=== PATIENT | female | born 1960 | race Caucasian/White ===

== ENCOUNTER 2017-01-30 19:30 | Inpatient (IN) ==
--- NOTE | 2017-01-30 20:47 | PROVIDER DOCUMENTATION ---
This chart was entered by Eliza Tena Scribe, acting as scribe for Himanshu Mchugh MD. HPI-Rash/Wound/ReCheck - General Chief Complaint: Wound Recheck Stated Complaint: WOUND RECHECK Time Seen by Provider: 01/30/17 20:27 Source: patient Allergies/Adverse Reactions: Allergies Allergy/AdvReac Type Severity Reaction Status Date / Time No Known Allergies Allergy Verified 01/29/17 07:06 Home Medications: Home Medication List Medication Instructions Recorded Confirmed Last Taken Type Amoxicillin/Potassium Clav 1 each PO TID #30 tablet 01/29/17 01/30/17 01/30/17 07:30 Rx [Augmentin 500-125 Tablet] Alprazolam [Alprazolam] 1 tab PO 01/30/17 Unknown History Brinzolamide/Brimonidine Tart 1 drop OPH BID 01/30/17 01/30/17 Unknown History [Simbrinza 1%-0.2% Eye Drops] Cholecalciferol (Vitamin D3) 1 tab PO DAILY 01/30/17 01/30/17 Unknown History [Vitamin D3] Cyanocobalamin/Folic Acid [B-12 1 tab PO DAILY 01/30/17 01/30/17 Unknown History 1,000 Mcg Sub Tablet] Levothyroxine [Synthroid] 75 microgm PO DAILY 01/30/17 01/30/17 01/29/17 History Losartan/Hydrochlorothiazide 1 tab PO DAILY 01/30/17 01/30/17 01/29/17 History [Hyzaar 50-12.5 Tablet] Mirtazapine [Remeron] 30 mg PO HS 01/30/17 01/30/17 01/29/17 History Mometasone/Formoterol [Dulera 100 2 inhaler PO PRN PRN 01/30/17 01/30/17 Unknown History Mcg/5 Mcg Inhaler] Pantoprazole [Protonix] 40 mg PO DAILY 01/30/17 01/30/17 Unknown History Pravastatin Sodium [Pravastatin 20 mg PO DAILY 01/30/17 01/30/17 01/29/17 History Sodium] Promethazine [Phenergan] 25 mg PO PRN PRN 01/30/17 01/30/17 Unknown History Sulfamethoxazole/Trimethoprim 1 each PO BID #20 tablet 01/30/17 Unknown Rx [Bactrim Ds Tablet] - History of Present Illness-Dermatology Nature of Presenting Problem: 56 Y/O F presents to ED with Animal Bite. Pt was seen twice and given Antibiotics. Pt was seen today and given IV antibiotics. Animal bite on left hand, Pt had area marked off where inflammation was and inflammation has grown past that area. Pt complains of burning and pain in arm. Pt was bitten on Friday 3 days ago. Location: reports: hands (left) Quality: reports: burning, painful Severity: reports: severe Onset/Duration: reports: 3 days ago Timing: reports: still present, changing over time, getting worse Context/Associated Symptoms: reports: tender area, other (dog bite) Identifiable cause?: Yes Locality of Occurance: Home Similar Symptoms Previously?: Yes Recently seen or treated by another doctor?: Yes - Recheck Treated days ago.: 2 (and today also 01/30/2017 ) Previous Treatment: other (dog bite wound care) Antibiotics given: prescription (and IV) Symptoms since procedure:: reports: pain, redness Review of Systems - Adult - REVIEW OF SYSTEMS - ADULT Constitutional: denies: chills, fever Eyes: reports: no symptoms reported Ears, Nose, Mouth & Throat: reports: no symptoms reported Cardiovascular: reports: no symptoms reported Respiratory: reports: no symptoms reported Gastrointestinal: reports: no symptoms reported Genitourinary: reports: no symptoms reported Musculoskeletal: reports: no symptoms reported Integumentary: reports: other (animal bite) Neurological: reports: no symptoms reported Psychiatric: reports: no symptoms reported Endocrine: reports: no symptoms reported Hematologic/Lymphatic: denies: blood clots, easy bruising Allergic/Immunologic: reports: no symptoms reported All Other Systems: Reviewed and Negative Past History - Adult - PAST MEDICAL HISTORY-ADULT Review of Records: reports: Old Records Reviewed, Nursing Assessment Review, Medications Reviewed, Social history reviewed & non-contributory. Major Childhood Illnesses: reports: denies history Cardiovascular: reports: HTN, hyperlipidemia Respiratory: reports: asthma Gastrointestinal: reports: diverticulosis Obstetrical/Gynecological: reports: other (breast cancer) Genitourinary: reports: denies history Musculoskeletal: reports: denies history Neurological: reports: denies history Endocrine/Immune: reports: thyroid disorder Other Conditions: reports: other (breast ca) - PRIOR SURGERIES/PROCEDURES Surgical/Procedure History: reports: cholecystectomy, hysterectomy - IMMUNIZATION STATUS Childhood Immunizations: See Nurse Assessment Flu Vaccine: See Nurse Assessment - FAMILY HISTORY Family History: reviewed, not pertinent Physical Exam-General - PHYSICAL EXAM-ADULT Initial Vital Signs Reviewed: Yes - CONSTITUTIONAL General Appearance: alert, mild distress - EYES Eyes: pink conjunctivae - HEAD, EARS, NOSE, MOUTH & THROAT HENMT: moist mucous membranes, normal ENT inspection - NECK Neck: full range of motion, supple, normal inspection - RESPIRATORY Respiratory: lungs clear, normal breath sounds - CARDIOVASCULAR Cardiovascular: regular rate, rhythm - GASTROINTESTINAL (ABDOMEN) Abdominal Exam: non tender, soft - MUSCULOSKELETAL Back Exam: normal inspection, no CVA tenderness, no vertebral tenderness Extremity: normal range of motion, erythema (of left hand and forearm), inflammation (of left hand with redness) - SKIN Integumentary: normal turgor, warm/dry - NEUROLOGIC Neurologic: grossly normal - PSYCHIATRIC Psych/Mental Status: normal thought content, normal thought process, oriented x 3, tearful Progress - PLAN OF CARE/RESULTS Progress/Plan/Lab Results: Vital Signs - 8 hr 01/30/17 20:11 Temperature 98.7 F Pulse Rate 80 Respiratory Rate 18 Blood Pressure 122/66 O2 Sat by Pulse Oximetry 96 - CONSULTS/PCP/HOSPITALIST Notification #1 *Consult/PCP/Hospitalist*: Time Discussed: 20:41 Reason/Comments: Admit Consult Disposition: Admit (Admit Accepted) Departure - Departure Date of Disposition Decision: 01/30/17 Time of Disposition Decision: 20:45 DIAGNOSIS: Cellulitis and abscess of hand Dog bite of left hand Qualifiers: Encounter type: subsequent encounter Qualified Code(s): S61.452D - Open bite of left hand, subsequent encounter; W54.0XXD - Bitten by dog, subsequent encounter Disposition: ADMITTED INPATIENT 09 Certified Medical Emergency: Emergent Condition: Stable Referrals and Follow-Ups: Roberto Carlos Bar MD [Primary Care Provider] - - Critical Care Note This patient required my direct & personal management of CC.: No This chart was documented by the indicated scribe, (Eliza Tena Scribe) and accurately reflects the services I performed and decisions made by me, Himanshu Mchugh MD, as attested by the provider's signature.
[2017-01-30] MEDS ORDERED: VANCOMYCIN 1 GM/NS 1 GM/250 ML IVPB IV SCH ×2 (21:00→21:15)
[2017-01-30] MEDS ORDERED: TORADOL IM ONE (22:54)
[2017-01-31] MEDS: MORPHINE IV PRN ×6 (00:29→21:19)
[2017-01-31] MEDS ORDERED: PNEUMOVAX 23 IM ONE (00:38)
[2017-01-31] MEDS: ZOSYN 3.375 GM/NS 3.375 GM/50 ML IVPB IV SCH ×3 (00:48→17:10)
[2017-01-31 09:24] LABS: MANUAL DIFF NEEDED? NO
[2017-01-31 09:25] LABS: BASO% 0.5 % (0.0-0.8); EOS# 0.24 X1000 (0.0-0.7); EOS% 2.9 % (0.0-10.0); HEMATOCRIT 35.9 % (37.0-47.0); HEMOGLOBIN 12.3 g/dL (12.0-16.0); IMM GRAN# 0.01 X1000 (0.0-0.04); IMM GRAN% 0.1 % (0.0-0.5); LYMPH% 31.3 % (20.5-51.1); MCH 32.4 PG (27-31); MCHC 34.3 g/dL (33-37); MCV 94.5 FL (81-99); MONO# 0.46 X1000 (0.11-0.59); MONO% 5.5 % (1.7-9.3); NEUT% 59.7 % (42.2-75.2); PLT 192 X1000 (130-400)
[2017-01-31] MEDS ORDERED: DOXYCYCLINE 100 MG in NS 250 ML IV SCH (09:30)
[2017-01-31] MEDS ORDERED: VANCOMYCIN IV PER PHARMACY MISC SCH (09:30)
[2017-01-31] MEDS ORDERED: XANAX PO PRN (09:37)
[2017-01-31] MEDS ORDERED: DULERA 100 MCG/5 MCG INHALER INH PRN (09:37)
[2017-01-31] MEDS ORDERED: NORCO-10 PO PRN (09:37)
[2017-01-31 10:04] LABS: AGAP 11; BUN 6 mg/dL (8-22); CALCIUM 8.6 mg/dL (8.8-10.2); CHLORIDE 101 mmol/L (98-107); COSMO 270; POTASSIUM 3.3 mmol/L (3.5-5.1); SODIUM 136 mmol/L (136-145); TCO2 23 mmol/L (25-35)
[2017-01-31] MEDS ORDERED: VANCOMYCIN 2,000 MG in NS 500 ML IV ONE (11:00)
[2017-01-31] MEDS: COZAAR PO SCH (11:34)
[2017-01-31] MEDS: PROTONIX PO SCH (11:34)
[2017-01-31] MEDS: VITAMIN D PO SCH (11:34)
[2017-01-31] MEDS: FOLTX PO SCH (11:34)
[2017-01-31] MEDS: HYDROCHLOROTHIAZIDE PO SCH (11:34)
[2017-01-31] MEDS: SYNTHROID PO SCH (11:35)
--- NOTE | 2017-01-31 12:31 | HISTORY AND PHYSICAL ---
PRIMARY CARE PHYSICIAN: Dr. Bar. CHIEF COMPLAINT: Of worsening redness to her left arm status post a dog bite. HISTORY OF PRESENTING ILLNESS: This is a 56-year-old female who presents to [facility] ER for a followup. She was seen in the emergency room on 01/29/2017 after she was bitten on the top of her left hand by dog on the 28 of January. She came on the and was treated and given antibiotics. The area where she had erythema was marked with a black marker. She was instructed that if the redness worsened past those hernandez that she needed to return to the emergency room. She was placed on amoxicillin at that time. States that she took all of her medications but she noticed that her redness had started going beyond the black marker hernandez of the original redness so she came back to the emergency room yesterday for evaluation. The area was warm, erythematous and slightly edematous. So, it was felt that she had failed outpatient treatment and would be admitted for further evaluation and treatment. While in the emergency room she was given a dose of vancomycin and was placed on Zosyn 3.375 g IV q.8. PAST MEDICAL HISTORY: Hypertension, hyperlipidemia, asthma, breast cancer and hypothyroidism. PAST SURGICAL HISTORY: Of a cholecystectomy, hysterectomy and a TRAM flap procedure for her breast cancer. FAMILY HISTORY: Noncontributory. SOCIAL HISTORY: She currently lives alone. Is a 1 pack a day smoker and has been so for the past 40 years and denied any alcohol or illicit drug use. ALLERGIES: She has no known drug allergies. HOME MEDICATIONS: She takes alprazolam 1 mg p.o. q.6 hours p.r.n. She was on Augmentin 500 t.i.d. will be held. Simbrinza 1%/0.2% eye drops ophthalmic b.i.d. Vitamin D3. Vitamin B12 1000 mcg p.o. daily. Silt 10 1 p.o. t.i.d. p.r.n. Synthroid 75 mcg p.o. daily. Losartan/hydrochlorothiazide 50/12.5, 1 p.o. daily. Dulera 2 puffs p.o. p.r.n. Protonix 40 mg p.o. daily. Pravastatin 20 mg p.o. daily. Phenergan 25 p.o. p.r.n. will be held and Bactrim DS 1 p.o. b.i.d. will be held. LABORATORY DATA: Showed a white blood cell count of 8.32, hemoglobin 12.3, hematocrit 35.9, platelets 192,000. A BMP is pending. REVIEW OF SYSTEMS: She denied any fever, chills, blurred vision, dizziness, chest pain, coughing, shortness of breath, abdominal pain, nausea, vomiting, diarrhea, burning or hurting with urination. She was positive for pain to her left hand and forearm. PHYSICAL EXAMINATION: On arrival, she had a temperature of 98.7 degrees, a pulse of 80, respirations 18, blood pressure 122/66, saturating 96% on room air. GENERAL: This is a 56-year-old female who is sitting up in the bed, and answers questions appropriately. HEENT: Normocephalic and atraumatic. Pupils are equal, round, reactive to light. Extraocular movements are intact. The oropharynx and nares are clear. NECK: Supple. LUNGS: Clear to auscultation bilaterally with equal lung expansion and chest wall movement. HEART: With regular rate and rhythm. No murmurs, rubs, or gallops. ABDOMEN: Soft, nontender, nondistended. Bowel sounds are present x4 quadrants. EXTREMITIES: Patient is noted to have erythema, edema, warmth to touch to her left forearm and left hand. NEUROLOGICAL: The cranial nerves 2-12 appear grossly intact. ASSESSMENT: 1. Left forearm cellulitis with failed outpatient treatment secondary to animal bite. 2. Hypertension. 3. Hypothyroidism. 4. Tobacco abuse. PLAN: She was admitted to the medical unit at [facility], placed on a regular diet. We will place on doxycycline 100 mg IV q.12, Zosyn 3.375 g IV q.8 and continue her home medications as previously identified. Morphine 2 mg IV q.4 hours p.r.n. and recheck a CBC, BMP in the a.m. Dictated by AMOR Carver for Nito Aiken MD cc: AMOR Carver MD Wayne E. Thomas, MD
[2017-01-31] MEDS ORDERED: ROCEPHIN 1 GM/NS 1 GM/50 ML IVPB IV SCH (15:30)
[2017-01-31] MEDS ORDERED: KLOR-CON PO ONE (15:36)
[2017-01-31] MEDS: AZOPT 1% OPHTH SUSP OPH SCH ×2 (16:04→21:20)
--- NOTE | 2017-01-31 16:16 | PROGRESS NOTE ---
DATE: 01/31/2017 SUBJECTIVE: Today Ms. Garcia refers to be doing a lot better. Continues to have some pain in the left hand. OBJECTIVE: Vital Signs: Stable. Blood pressure is 156/65, pulse is 73, respirations 18, temperature 98.1 degrees. General: Ms. Garcia is a 56-year-old female. She is in bed. She is not in any remarkable distress. HEENT: Mucosa is pink and moist. Anicteric and acyanotic. Neck: Supple. Chest: Good air entry bilaterally. No crepitations. No rhonchi. Cardiovascular: Regular rate and rhythm. Abdomen: Soft, nontender. Extremities: No pedal edema. The left upper extremity has a puncture wound on the dorsal aspect, almost in the middle, and it has erythematous changes all the way to almost the elbow. SALES [employer]: Patient is alert and awake. ASSESSMENT: 1. Dog bite to the left dorsal hand with subsequent cellulitis. 2. Hypertension. 3. Hypothyroidism with goiter nodules. 4. Tobacco abuse. 5. History of left breast cancer. Patient has had complete therapy on that and has very good follow up. 6. Mild hypokalemia. We will replace this. PLAN: So in general, Ms. Garcia seems to be doing fine. Continues to have some pain and erythematous changes at the site of the dog bite. Patient had been treated with Augmentin at home but seems to have failed outpatient therapy. We will therefore continue with the IV antibiotics. She was on doxycycline which I have changed to clindamycin and will continue with the Zosyn. Hopefully by tomorrow the change is a whole lot better and we can let her home either tomorrow or the day after. We will also replace her potassium. cc: Nito Aiken MD
[2017-01-31] MEDS: CLINDAMYCIN 600 MG in NS 50 ML IV SCH (16:29)
[2017-01-31] MEDS: CULTURELLE PO SCH (21:20)
[2017-01-31] MEDS: PRAVACHOL PO SCH (21:20)
[2017-01-31] MEDS: ALPHAGAN 0.2% OPHTH SOLN BOTH EYES SCH (21:22)
[2017-01-31] MEDS: VANCOMYCIN 1,750 MG in NS 250 ML IV SCH (22:13)
[2017-02-01] MEDS: CLINDAMYCIN 600 MG in NS 50 ML IV SCH ×3 (00:22→15:57)
[2017-02-01] MEDS: ZOSYN 3.375 GM/NS 3.375 GM/50 ML IVPB IV SCH ×3 (00:58→16:36)
[2017-02-01] MEDS: MORPHINE IV PRN ×6 (01:34→23:03)
[2017-02-01] MEDS: SYNTHROID PO SCH ×2 (05:49→06:25)
[2017-02-01 06:08] LABS: MANUAL DIFF NEEDED? NO
[2017-02-01 06:11] LABS: BASO% 0.5 % (0.0-0.8); EOS# 0.25 X1000 (0.0-0.7); EOS% 3.9 % (0.0-10.0); HEMATOCRIT 38.3 % (37.0-47.0); IMM GRAN# 0.01 X1000 (0.0-0.04); IMM GRAN% 0.2 % (0.0-0.5); LYMPH# 2.34 X1000 (1.2-3.4); LYMPH% 36.5 % (20.5-51.1); MCH 32.3 PG (27-31); MCHC 33.9 g/dL (33-37); MONO# 0.35 X1000 (0.11-0.59); MONO% 5.5 % (1.7-9.3); MPV 10.5 FL (7.4-10.4); NEUT% 53.4 % (42.2-75.2); PLT 214 X1000 (130-400); RBC 4.03 XMIL (4.2-5.4)
[2017-02-01 06:35] LABS: AGAP 10; BUN 5 mg/dL (8-22); CALCIUM 8.5 mg/dL (8.8-10.2); CHLORIDE 106 mmol/L (98-107); COSMO 276; POTASSIUM 3.6 mmol/L (3.5-5.1); SODIUM 140 mmol/L (136-145); TCO2 24 mmol/L (25-35)
[2017-02-01] MEDS: AZOPT 1% OPHTH SUSP OPH SCH ×2 (09:48→21:35)
[2017-02-01] MEDS: ALPHAGAN 0.2% OPHTH SOLN BOTH EYES SCH ×2 (09:48→21:37)
[2017-02-01] MEDS: COZAAR PO SCH (09:49)
[2017-02-01] MEDS: PROTONIX PO SCH (09:49)
[2017-02-01] MEDS: VITAMIN D PO SCH (09:49)
[2017-02-01] MEDS: HYDROCHLOROTHIAZIDE PO SCH (09:49)
[2017-02-01] MEDS: FOLTX PO SCH (09:49)
[2017-02-01] MEDS: CULTURELLE PO SCH ×2 (09:49→21:38)
[2017-02-01] MEDS ORDERED: HYDROCHLOROTHIAZIDE PO ONE (11:00)
[2017-02-01] MEDS: VANCOMYCIN 1,750 MG in NS 250 ML IV SCH ×2 (11:14→23:08)
--- NOTE | 2017-02-01 11:51 | PROGRESS NOTE ---
DATE: 02/01/2017 SUBJECTIVE: This patient states that she is doing much better. She is still having some inflammation and pain in the left hand. OBJECTIVE: Vital Signs: Temperature 98.6 degrees, pulse 65, respiratory rate 20, blood pressure 160/76, oxygen saturation 97% on room air. HEENT: Head normocephalic. No trauma. PERRLA. Neck: Supple. No JVD. No masses. Central trachea. Chest: Clear to auscultation. No wheezing. No rales. Abdomen: Soft, nontender, nondistended. No hepatosplenomegaly. Extremities: Left hand has a wound on the dorsal aspect, almost in the middle, with erythematosus changes. Initially, as per the patient, those changes were up to the elbow, but today it is just around the wound. She is able to move the hand. I do not think she has an abscess. She feels much better. Neurologic: The patient is alert and oriented x3. No focal deficits. LABORATORY: WBC 6, hemoglobin 13, hematocrit 38.3, platelets 214,000. Sodium 140, potassium 3.6, chloride 106, bicarbonate 24, BUN 5, creatinine 0.5, glucose 84, calcium 8.5. ASSESSMENT AND PLAN: 1. Left hand cellulitis secondary to dog bite. I will continue with the same management for now. Hopefully, I will be able to discharge this patient tomorrow. 2. Hypertension. Her blood pressure has been a little bit elevated. I will increase her dose of hydrochlorothiazide from 12.5 to 25 daily. 3. Hypothyroidism with goiter, nodules. Aware. Continue with the same management. 4. Tobacco abuse. This patient has been highly advised against tobacco use. I will continue with daily cessation education. 5. History of left breast cancer. This patient has completed therapy on that and has very good followup. This patient is doing much better. I will keep this patient for more 1 more day for IV antibiotics. Hopefully, tomorrow she is going to be able to be discharged. cc: King Magaña MD
[2017-02-01] MEDS ORDERED: REMERON PO SCH (21:00)
[2017-02-01] MEDS ORDERED: EFFEXOR XR PO SCH (21:00)
[2017-02-01] MEDS: PRAVACHOL PO SCH (21:39)
[2017-02-02] MEDS: CLINDAMYCIN 600 MG in NS 50 ML IV SCH ×2 (01:18→09:13)
[2017-02-02] MEDS: ZOSYN 3.375 GM/NS 3.375 GM/50 ML IVPB IV SCH ×2 (02:04→09:52)
[2017-02-02] MEDS: SYNTHROID PO SCH (06:16)
[2017-02-02 06:25] LABS: MANUAL DIFF NEEDED? NO
[2017-02-02 06:37] LABS: BASO% 0.4 % (0.0-0.8); EOS# 0.29 X1000 (0.0-0.7); HEMATOCRIT 40.9 % (37.0-47.0); IMM GRAN# 0.01 X1000 (0.0-0.04); IMM GRAN% 0.1 % (0.0-0.5); LYMPH# 2.21 X1000 (1.2-3.4); LYMPH% 30.4 % (20.5-51.1); MCH 32.6 PG (27-31); MCHC 34.2 g/dL (33-37); MCV 95.3 FL (81-99); MONO# 0.48 X1000 (0.11-0.59); MONO% 6.6 % (1.7-9.3); MPV 10.1 FL (7.4-10.4); NEUT% 58.5 % (42.2-75.2); PLT 244 X1000 (130-400); RBC 4.29 XMIL (4.2-5.4)
[2017-02-02] MEDS ORDERED: PROTONIX PO SCH (07:00)
[2017-02-02 07:01] LABS: AGAP 13; BUN 6 mg/dL (8-22); CALCIUM 8.8 mg/dL (8.8-10.2); CHLORIDE 108 mmol/L (98-107); COSMO 284; POTASSIUM 3.6 mmol/L (3.5-5.1); SODIUM 144 mmol/L (136-145); TCO2 23 mmol/L (25-35)
[2017-02-02] MEDS: MORPHINE IV PRN ×2 (08:12→11:41)
[2017-02-02] MEDS ORDERED: HYDROCHLOROTHIAZIDE PO SCH (09:00)
[2017-02-02] MEDS: FOLTX PO SCH (09:12)
[2017-02-02] MEDS: AZOPT 1% OPHTH SUSP OPH SCH (09:12)
[2017-02-02] MEDS: COZAAR PO SCH (09:13)
[2017-02-02] MEDS: VITAMIN D PO SCH (09:13)
[2017-02-02] MEDS: CULTURELLE PO SCH (09:13)
[2017-02-02] MEDS: ALPHAGAN 0.2% OPHTH SOLN BOTH EYES SCH (09:19)
[2017-02-02 11:21] VITALS: BP 172/76
[2017-02-02] MEDS: VANCOMYCIN 1,750 MG in NS 250 ML IV SCH (11:50)
[2017-02-02] MEDS ORDERED: AZOPT 1% OPHTH SUSP ONE (12:31)
--- NOTE | 2017-02-03 08:05 | DISCHARGE SUMMARY ---
ADMISSION DATE: 01/30/2017 DISCHARGE DATE: 02/02/2017 PRIMARY CARE PHYSICIAN: Dr. Bar. ADMISSION DIAGNOSES: 1. Left forearm cellulitis with failed outpatient treatment secondary to an animal bite. 2. Hypertension. 3. Hypothyroidism. 4. Tobacco abuse. DISCHARGE DIAGNOSES: 1. Left forearm cellulitis with failed outpatient treatment secondary to an animal bite, improved. 2. Hypertension. 3. Hypothyroidism. 4. Tobacco abuse. SUMMARY OF FINDINGS: This is a 56-year-old, who presented to the emergency room on 01/29/2017 after she had been bitten on the top of her left hand by a dog on the 28 of January. On the , she was treated with antibiotics. The erythema was marked with a black marker. She was instructed to return if the redness worsened past the priscilla. She was placed on amoxicillin at that time. States she took her medicine as prescribed but noticed that the redness had went beyond the black marker hernandez of the original redness so she came back into the emergency room for evaluation. The area was warm, erythematous, and slightly edematous. It was felt that she had failed outpatient treatment and was admitted. Placed on IV antibiotics, IV morphine 2 mg q.4 hours p.r.n. She responded well to the therapy. Her white blood cell count has remained within normal limits. Her erythema has improved and so it is felt today that she can safely be discharged home. DISCHARGE MEDICATIONS: Include her home medication of alprazolam 1 mg p.o. q.6 hours p.r.n., Simbrinza 1%/0.2% eyedrops ophthalmically b.i.d., vitamin D3 1000 units p.o. daily, B12 1000 mcg p.o. daily, hydrochlorothiazide 25 mg p.o. q.a.m. (#90, no refills), hydrocodone 10 one p.o. t.i.d. p.r.n., Synthroid 75 mcg p.o. daily, Cozaar 50 mg p.o. daily (#90 with no refills), Remeron 30 mg p.o. at bedtime, Dulera 2 puffs p.o. p.r.n., Protonix 40 mg p.o. daily, pravastatin 20 mg p.o. daily, Effexor XR 150 mg p.o. at bedtime, Augmentin 500/125 one p.o. t.i.d. (#30 with no refills), Alphagan drops to both eyes b.i.d., hydrochlorothiazide 25 mg p.o. q.a.m., Phenergan 25 mg p.o. p.r.n. FOLLOWUP: She will follow up with her primary care physician in 1-2 weeks. DISCHARGE INSTRUCTIONS: All discharge instructions were reviewed with the patient and she verbalized understanding. This is a 35 minute discharge. Dictated by AMOR Carver for King Magaña MD cc: AMOR Carver MD Dr. Thomas
== END 2017-02-02 12:35 | disposition home or self-care (01) ==
LOC: P.ED 19:30 → SUATTDRO 22:13 → P.MEDSURG 22:13
PROVIDERS: ATTEND Internal Medicine

== ENCOUNTER 2019-03-22 22:46 | Inpatient (IN) ==
--- NOTE | 2019-03-22 23:02 | EKG Report ---
Test Performed on : 03/22/2019 10:53:08 PM Test Reason : sob Blood Pressure : / mmHG Vent. Rate : 076 BPM Atrial Rate : 076 BPM P-R Int : 150 ms QRS Dur : 078 ms QT Int : 428 ms P-R-T Axes : 092 069 092 degrees QTc Int : 481 ms Normal sinus rhythm. Nonspecific T wave abnormality Abnormal ECG When compared with ECG of 06-MAY-2018 02:28, QT has lengthened Unconfirmed Result
[2019-03-22] MEDS ORDERED: SOLU-MEDROL IV ONE (23:10)
[2019-03-22] MEDS ORDERED: DUONEB (A & A) INH ONE (23:10)
[2019-03-22] MEDS ORDERED: ALBUTEROL NEB INH ONE (23:10)
[2019-03-22] MEDS ORDERED: PULMICORT INH ONE (23:10)
[2019-03-22 23:42] LABS: HEMATOCRIT 39.2 % (37.0-47.0); HEMOGLOBIN 13.6 g/dL (12.0-16.0); LYMPH% 36.3 % (20.5-51.1); MCHC 34.7 g/dL (33-37); MCV 92.2 FL (81-99); MPV 9.5 FL (7.4-10.4); NEUT% 51.6 % (42.2-75.2); PLT 280 X1000 (130-400); RBC 4.25 XMIL (4.2-5.4); RDW 12.4 % (11.5-14.5)
[2019-03-22 23:43] LABS: BASO# 0.07 X1000 (0.0-0.2); BASO% 0.7 % (0.0-0.8); EOS# 0.43 X1000 (0.0-0.7); EOS% 4.4 % (0.0-10.0); LYMPH# 3.52 X1000 (1.2-3.4); MONO# 0.68 X1000 (0.11-0.59)
[2019-03-22 23:46] LABS: INR 1.01; PROTIME 13.4 Seconds (11.0-16.0); PTT 31.6 Seconds (22.3-41.8)
[2019-03-23 00:19] LABS: AGAP 11; ALB/GLOB RATIO 1.9; ALBUMIN 4.3 g/dL (3.5-5.0); ALKALINE PHOSPHATASE 94 U/L (32-104); BUN 9 mg/dL (8-22); CALCIUM 9.5 mg/dL (8.8-10.2); CHLORIDE 102 mmol/L (98-107); COSMO 280; CREATININE 0.6 mg/dL (0.5-0.9); ESTIMATED GFR > 60; GLUCOSE 99 mg/dL (70-104); GOT 28 U/L (10-30); POTASSIUM 3.7 mmol/L (3.5-5.1); SODIUM 141 mmol/L (136-145); TCO2 28 mmol/L (25-35); TOTAL BILIRUBIN < 0.15 mg/dL (0.20-1.00); TOTAL PROTEIN 6.6 g/dL (6.3-8.3)
[2019-03-23 00:20] LABS: CK PROFILE 711 U/L (24-173)
[2019-03-23 00:55] LABS: CK-MB 6.93 ng/mL (0.0-5.0)
[2019-03-23 01:35] LABS: GPT 17 U/L (10-36)
--- NOTE | 2019-03-23 02:05 | PROVIDER DOCUMENTATION ---
This chart was entered by Fang Burnett Scribe, acting as scribe for Jeffry Trejo MD. HPI-Respiratory General - General Chief Complaint: Shortness of Breath Stated Complaint: ASTHMA/COPD/EMPHYSEMA Time Seen by Provider: 03/22/19 23:08 Source: patient Allergies/Adverse Reactions: Patient Allergies Allergy/AdvReac Type Severity Reaction Status Date / Time No Known Allergies Allergy Verified 08/27/18 18:19 Home Medications: Home Medication List Medication Instructions Recorded Confirmed Last Taken Type Cholecalciferol (Vitamin D3) 1 tab PO DAILY 01/30/17 04/30/18 01/30/17 16:00 History [Vitamin D3] Mirtazapine [Remeron] 30 mg PO HS 01/30/17 04/30/18 01/30/17 16:00 History Mometasone/Formoterol [Dulera 100 2 puff PO PRN PRN 01/30/17 04/30/18 01/30/17 07:00 History Mcg/5 Mcg Inhaler] Pantoprazole [Protonix] 40 mg PO DAILY@0700 01/30/17 04/30/18 01/30/17 16:00 History Pravastatin Sodium 20 mg PO DAILY 01/30/17 04/30/18 01/30/17 16:00 History Venlafaxine E.r. [Effexor Xr] 150 mg PO QHS 01/31/17 04/30/18 Unknown History Hydrocodone/Acetaminophen 1 each PO TID PRN #15 tablet 02/02/17 04/30/18 Unknown Rx [Hydrocodone-Acetamin 10-325 mg] Losartan/Hctz [Hyzaar 100/12.5 mg 1 each PO DAILY #90 tablet 02/02/17 04/30/18 Unknown Rx Tab] Carbamazepine 200 mg PO BID 05/01/18 05/01/18 Unknown History Levothyroxine Sodium 100 mcg PO DAILY@0600 05/01/18 05/01/18 Unknown History Roflumilast [Daliresp] 500 mcg PO DAILY 05/01/18 05/01/18 Unknown History Sucralfate 1 gm PO AC 05/01/18 05/01/18 Unknown History Albuterol 2.5MG/Ipratrop 0.5MG 3 ml INH RTQ6H #120 neb 05/06/18 Unknown Rx [Duoneb] Doxycycline 100 mg PO BID #14 tab 05/06/18 Unknown Rx Guaifenesin/Codeine [Robitussin-AC] 5 ml PO Q4H PRN PRN #200 udc 05/06/18 Unknown Rx Methylprednisolone [Medrol Dosepak] 4 mg PO DIRECTED #1 pkg 05/06/18 Unknown Rx Ketorolac [Toradol] 10 mg PO Q6H PRN PRN #20 tab 08/27/18 Unknown Rx - History of Present Illness-Resp Nature of Presenting Problem: pt is a 58 yr old female presenting with complaint of increased shortness of breath, productive cough with white and green sputum. pt also reports sinus drainage, nausea and dizziness. pt reports hx of COPD. Severity in ED: reports: moderate Onset/Duration: reports: 1 week ago Timing: reports: changing over time, getting worse Exposure: reports: unknown cause Cough Quality/Degree: reports: severe, productive cough, sputum (green/white) Episode Frequency: frequent episodes Current Respiratory Medication Therapy: Initiated see nurses note Modifying Factors: improves with: exertion (worsens), coughing (worsens), rest ( no improvement) Associated Symptoms: reports: cough, dizziness, headache, nasal drainage, shortness of breath, wheezing. denies: chest pain/soreness, fever/chills Similar Symptoms Previously?: Yes Recently seen or treated by another [facility]?: [facility] Review of Systems - Adult - REVIEW OF SYSTEMS - ADULT Constitutional: reports: fatique. denies: fever Eyes: reports: no symptoms reported Ears, Nose, Mouth & Throat: reports: sinus problem. denies: ear pain, throat pain Cardiovascular: denies: chest pain, palpitations, syncope Respiratory: reports: cough, dyspnea on exertion, excessive sputum production, shortness of breath Gastrointestinal: reports: abdominal pain, nausea. denies: diarrhea, vomiting Genitourinary: denies: dysuria, frequency, flank pain Musculoskeletal: denies: back pain, neck pain Integumentary: reports: no symptoms reported Neurological: reports: dizziness/vertigo. denies: headache/migraines, syncope Psychiatric: reports: no symptoms reported Endocrine: reports: no symptoms reported Hematologic/Lymphatic: reports: no symptoms reported Allergic/Immunologic: reports: no symptoms reported All Other Systems: Reviewed and Negative Past History - Adult - PAST MEDICAL HISTORY-ADULT Review of Records: reports: Old Records Reviewed, Nursing Assessment Review, Medications Reviewed, Social history reviewed & non-contributory. Major Childhood Illnesses: reports: denies history Cardiovascular: reports: HTN, hyperlipidemia Respiratory: reports: asthma Gastrointestinal: reports: diverticulosis Obstetrical/Gynecological: reports: other (breast cancer) Genitourinary: reports: denies history Musculoskeletal: reports: denies history Neurological: reports: denies history Endocrine/Immune: reports: thyroid disorder Other Conditions: reports: other (breast ca) - PRIOR SURGERIES/PROCEDURES Surgical/Procedure History: reports: cholecystectomy, hysterectomy, breast (masectomy), other (right eye x5 retina) - IMMUNIZATION STATUS Childhood Immunizations: See Nurse Assessment Flu Vaccine: See Nurse Assessment - FAMILY HISTORY Family History: reviewed, not pertinent - SOCIAL HISTORY Smoking: cigarettes Provider spent 3-5 mins advising pt. on dangers of tobacco.: Discussed manners to quit use, and f/u contacts for add'l counseling. Living Situation: alone Physical Exam-General - PHYSICAL EXAM-ADULT Initial Vital Signs Reviewed: Yes - CONSTITUTIONAL General Appearance: alert, mild distress - EYES Eyes: PERRL/EOMI - HEAD, EARS, NOSE, MOUTH & THROAT HENMT: normocephalic/atraumatic, moist mucous membranes, normal ENT inspection - NECK Neck: non-tender, full range of motion, supple, normal inspection - RESPIRATORY Respiratory: chest non-tender, decreased breath sounds, wheezing (diffuse inspritory/expritory wheezing), prolonged expiration, increased rate - CARDIOVASCULAR Cardiovascular: normal peripheral pulses, regular rate, rhythm, no edema - GASTROINTESTINAL (ABDOMEN) Abdominal Exam: normal bowel sounds, tenderness (diffuse) - LYMPHATIC Lymphatic: no adenopathy - MUSCULOSKELETAL Back Exam: normal inspection, no CVA tenderness, no vertebral tenderness Extremity: normal range of motion, non-tender, normal gait, normal inspection - SKIN Integumentary: normal color, normal turgor, warm/dry - PSYCHIATRIC Psych/Mental Status: normal mood/affect Progress - PLAN OF CARE/RESULTS Progress/Plan/Lab Results: Vital Signs - 8 hr 03/22/19 22:49 03/22/19 23:49 Temperature 98.3 F Pulse Rate 79 81 Respiratory Rate 24 28 H Blood Pressure 107/58 O2 Sat by Pulse Oximetry 86 L 96 Laboratory Results - last 24 hr 03/22/19 03/22/19 03/22/19 23:23 23:23 23:23 WBC 9.70 RBC 4.25 Hgb 13.6 Hct 39.2 MCV 92.2 MCH 32.0 H MCHC 34.7 RDW Std Deviation 12.4 Plt Count 280 MPV 9.5 Immature Gran % (Auto) 0.0 Neut % (Auto) 51.6 Lymph % (Auto) 36.3 [place] % (Auto) 7.0 Eos % (Auto) 4.4 Baso % (Auto) 0.7 Immature Gran # (Auto) 0.00 Neut # (Auto) 5.00 Lymph # (Auto) 3.52 H [place] # (Auto) 0.68 H Eos # (Auto) 0.43 Baso # (Auto) 0.07 PT INR PTT (Actin FS) Sodium 141 Potassium 3.7 Chloride 102 Carbon Dioxide 28 Anion Gap 11 BUN 9 Creatinine 0.6 Estimated GFR/1.73 m2 > 60 BUN/Creatinine Ratio 15 Glucose 99 Calculated Osmolality 280 Calcium 9.5 Total Bilirubin < 0.15 L AST 28 ALT 17 Alkaline Phosphatase 94 Creatine Kinase 711 H Creatine Kinase Index 1.0 CK-MB (CK-2) 6.93 H Troponin T [id number] Pept 75 Total Protein 6.6 Albumin 4.3 Globulin 2.3 Albumin/Globulin Ratio 1.9 03/22/19 03/22/19 23:23 23:23 WBC RBC Hgb Hct MCV MCH MCHC RDW Std Deviation Plt Count MPV Immature Gran % (Auto) Neut % (Auto) Lymph % (Auto) [place] % (Auto) Eos % (Auto) Baso % (Auto) Immature Gran # (Auto) Neut # (Auto) Lymph # (Auto) [place] # (Auto) Eos # (Auto) Baso # (Auto) PT 13.4 INR 1.01 PTT (Actin FS) 31.6 Sodium Potassium Chloride Carbon Dioxide Anion Gap BUN Creatinine Estimated GFR/1.73 m2 BUN/Creatinine Ratio Glucose Calculated Osmolality Calcium Total Bilirubin AST ALT Alkaline Phosphatase Creatine Kinase Creatine Kinase Index CK-MB (CK-2) Troponin T < 0.010 [id number]-Hdzsgmsndod Pept Total Protein Albumin Globulin Albumin/Globulin Ratio Orders Category Date Time Status Cardiac Monitoring DIRECTED Care 03/22/19 23:08 Active Oxygen Therapy- ED Nursing DIRECTED Care 03/22/19 23:08 Active Oxygen Therapy- ED Nursing DIRECTED Care 03/22/19 23:08 Active Saline Loc NOW Care 03/22/19 23:08 Active CHEST-2 VIEWS [RAD] Stat Exams 03/22/19 23:08 Taken CBC WITH ELECTRONIC DIFF [HEME] Stat Lab 03/22/19 23:23 Completed CK PROFILE [SP CHEM] Stat Lab 03/22/19 23:23 Completed COMPREHENSIVE METABOLIC PANEL [CHEM] Stat Lab 03/22/19 23:23 Completed PRO B-NATRIURETIC PEPTIDE Stat Lab 03/22/19 23:23 Completed PROTIME WITH INR [COAG] Stat Lab 03/22/19 23:23 Completed PTT [COAG] Stat Lab 03/22/19 23:23 Completed TROPONIN T Stat Lab 03/22/19 23:23 Completed Albuterol 2.5MG/Ipratrop 0.5MG [Duoneb (A & A)] Med 03/22/19 23:10 Discontinued 3 ml INH NOW ONE Albuterol [Albuterol Neb] Med 03/22/19 23:10 Discontinued 5 mg INH NOW ONE Budesonide [Pulmicort] Med 03/22/19 23:10 Discontinued 0.5 mg INH NOW ONE Methylprednisolone Sod Succ [Solu-Medrol] Med 03/22/19 23:10 Discontinued 125 mg IV NOW ONE Aerosol Treatments Routine Oth 03/22/19 23:11 Completed Aerosol Treatments Stat Oth 03/22/19 23:08 Completed Aerosol Treatments Stat Oth 03/22/19 23:11 Completed Asthma/COPD (Adult) Stat Oth 03/22/19 23:08 Ordered CP/SOB/Palp >45 yrs of Age Stat Oth 03/22/19 23:08 Ordered EKG [EKG] Stat Ther 03/22/19 22:59 Draft Result Diagrams: 03/22/19 23:23 03/22/19 23:23 - REASSESSMENT Reassessment #1 Time Reassessed: 01:40 Status: improving (after breathing tx complete pt airflow has improved, pt continues to have inspritory/expritory wheezing and Spo2 is now 94% on 2l via nasal canula. pt coughing throughout exam.) - EKG 1 Time of EKG reading by physician:: 23:02 EKG Read and Signed by:: Jeffry Trejo EKG Interpretation (*Must complete 3 of following elements*): Abnormal (non specific t wave abnormality) Rate: 76 Rhythm: nsr [place]: normal QRS: normal [place] Interval: normal - XRAY 1 XRAY Study: Chest Impression: Abnormal (COPD, bithoratal atelectasis) - CONSULTS/PCP/HOSPITALIST Notification #1 *Consult/PCP/Hospitalist*: [place] Time Discussed: 02:00 Consult Disposition: Will see in ED, Admit Departure - Departure Date of Disposition Decision: 03/23/19 Time of Disposition Decision: 01:48 DIAGNOSIS: COPD exacerbation, Tobacco abuse, Hypoxemia Disposition: ADMITTED INPATIENT 09 Certified Medical Emergency: Emergent Condition: Good Referrals and Follow-Ups: Roberto Carlos Bar MD [Primary Care Provider] - - Critical Care Note This patient required my direct & personal management of CC.: No Attestation - Physician/ EYAL Attestation Patient care was provided by Advanced Practice Provider:: No The physician spent face to face time with patient:: Yes Advanced Practice Provider documentation review:: Supervising physician onsite and consulted in the evaluation and care of this patient. The physician did have a face to face encounter with the patient. This chart was documented by the indicated scribe, (Fang Burnett Scribe) and accurately reflects the services I performed and decisions made by me, Jeffry Trejo MD, as attested by the provider's signature.
[2019-03-23] MEDS ORDERED: BROVANA NEB INH ONE (02:41)
[2019-03-23] MEDS ORDERED: TUSSIONEX LIQUID PO ONE ×2 (02:41→19:57)
[2019-03-23] MEDS ORDERED: TESSALON PO ONE (02:41)
[2019-03-23] MEDS: ZITHROMAX 500 MG/NS 500 MG/250 ML IVPB IV SCH (04:42)
[2019-03-23] MEDS ORDERED: NICODERM PATCH TD PRN (05:18)
[2019-03-23] MEDS ORDERED: ZOFRAN IV PRN (05:18)
[2019-03-23] MEDS ORDERED: TYLENOL PO PRN (05:18)
[2019-03-23] MEDS: DUONEB (A & A) INH SCH ×6 (05:25→23:12)
[2019-03-23] MEDS: LOVENOX SUBQ SCH (05:59)
[2019-03-23] MEDS ORDERED: SYNTHROID PO SCH (06:00)
[2019-03-23] MEDS: CARAFATE PO SCH ×3 (06:00→17:28)
[2019-03-23] MEDS: PROTONIX PO SCH (06:00)
[2019-03-23] MEDS: SYNTHROID PO SCH (06:05)
[2019-03-23] MEDS: NORCO-10 PO PRN ×3 (06:15→23:06)
--- NOTE | 2019-03-23 06:57 | HISTORY AND PHYSICAL ---
PRIMARY CARE PROVIDER: Dr. Roberto Carlos Bar DATE AND TIME: 03/23/2019 at 0215. CHIEF COMPLAINT: Shortness of breath. HISTORY OF PRESENT ILLNESS: Ms. Garcia is a 58-year-old female who has a past medical history for notable for COPD, hypertension, hyperlipidemia, hypothyroidism, nicotine dependence, and breast cancer. The patient states that for approximately 1 week now she has had worsening respiratory symptoms. She states that she initially started off with some sinus pressure and sinus drainage. Then, she began to have worsening cough that was productive with quite sputum that has been once or twice occasionally greenish in color at times. She reported that since Friday she has had worsening shortness of breath, and this progressively got worse. Today, she decided to come to the ER for further evaluation. She reports that her stomach is sore from coughing. Though other than this, she denies any other body aches, fever or chills. Upon evaluation in the ER, the patient's initial vital signs were temperature 98.3, heart rate 79, respirations 24, blood pressure was 107/58, and oxygen saturation was 86% on room air. She has since been placed on nasal cannula at 3 L, and oxygen saturation has improved to 95 to 96%. Chest x-ray did not show any acute abnormalities or infectious process. The patient in the ER did receive the IV Solu-Medrol and DuoNeb treatment though she is continuing to have respiratory symptoms, though they have improved some. The patient will need a place for admission for further treatment evaluation of her COPD exacerbation. PAST MEDICAL HISTORY: 1. COPD. 2. Hypertension. 3. Hyperlipidemia. 4. Breast cancer for which the patient reports that she did undergo a right TRAM flap procedure on the right. She also did take tamoxifen for a 5 year period. 5. History of renal and bladder stones. 6. Nicotine dependence. 7. History of right eye retinal detachment x4. 8. Cataracts in her right eye. 9. History of partial thyroidectomy. PAST SURGICAL HISTORY: 1. Cholecystectomy. 2. Hysterectomy. 3. Right breast TRAM flap procedure. 4. Surgery for renal and bladder stones. 5. Right shoulder rotator cuff repair. 6. Surgery for right ventral hernia x3. 7. Right eye surgery for cataract. 8. Surgery for a retinal detachment of her right eye x4. 9. Bilateral feet surgery for bone deformity though this was as a young child. SOCIAL HISTORY: The patient does live alone. She smokes a pack a day, and has done so for 40 years. There is no known alcohol or illicit drug use. FAMILY HISTORY: Positive for her mother having a history of congestive heart failure and diabetes mellitus. Her father had a history of bladder cancer, heart disease, and lung disease. She did have 5 siblings, though all are healthy except for she does have one brother who did pass away with a myocardial infarction in his 60s. ALLERGIES: Patient has no known allergies. She does have adverse reaction to [place], which causes her to have nausea. HOME MEDICATIONS: 1. DuoNeb treatments 3 mL inhaled q.6 hours. 2. Symbicort 160/4.5 mcg inhaler 2 puffs inhaled b.i.d. 3. Carbamazepine 200 mg p.o. b.i.d. 4. Vitamin D3 1000 unit capsule 1 p.o. daily. 5. [place] 10 mg 1 p.o. t.i.d. p.r.n. for pain. 6. Levothyroxine sodium 75 mcg p.o. daily. 7. Hyzaar 100/12.5 mg tablet 1 p.o. daily. 8. Remeron 30 mg p.o. at bedtime. 9. Protonix 40 mg p.o. daily. 10. Daliresp 500 mcg p.o. daily. 11. Carafate 1 g p.o. before meals 3 times a day. 12. Trazodone 50 mg p.o. at bedtime p.r.n. for sleep. 13. Effexor XR 150 mg p.o. at bedtime. DIAGNOSTIC DATA/LABORATORY RESULTS: White blood cell count is 9,700, hemoglobin 13.6, hematocrit 39.2, and platelet count is 280,000. PT 13.4, INR 1.01, PTT 31.6. Sodium 141, potassium 3.7, chloride 102, serum bicarbonate 28, BUN 9, creatinine 6 with a glucose of 99, and calcium 9.5. Liver function tests within normal limits. CK is 711. CK index is 1. CK-MB is 6.93. Troponin is less than 0.01. Pro BNP 75. EKG showed a normal sinus rhythm at a rate of 76 with a QTc of 481. Chest x-ray did not show any acute abnormalities or infectious process though so we are awaiting official radiology over read. PHYSICAL EXAMINATION: VITAL SIGNS: Temperature current 98.3, heart rate 73, respirations 18, blood pressure is 114/78, and oxygen saturation is 95% on nasal cannula at 3L. GENERAL: Ms. Garcia is a pleasant 58-year-old female. She was resting on the ER stretcher. She was in no acute distress. She was awake and alert, and able to answer questions appropriately. HEENT: Head is atraumatic, normocephalic. Pupils were unequal in size though the patient states this was not of new onset, and has been present secondary to her eye surgeries on her right eye. Her left pupil was 3 mm and was round, and reactive to light. Right pupil was 2 mm, round, though not have a pupillary response. Oral mucosa is moist. Oropharynx is clear. NECK: Supple. Trachea midline. CARDIOVASCULAR: S1, S2 present. No murmurs, gallops, or rubs appreciated with a regular rate and rhythm. PULMONARY: Patient has symmetrical chest expansion bilaterally. Lung sounds did have inspiratory and expiratory wheezing as well as coarse rhonchi noted in bilateral full engel. ABDOMEN: Soft. Nondistended. She reports some soreness upon palpation. Bowel sounds are present in all 4 quadrants and were normoactive. No cyanosis or edema present. Pulse, motor and sensory is intact in all extremities. EXTREMITIES: Radial and pedal pulses are 2+ bilaterally. INTEGUMENTARY: The patient's skin is pink, warm, and dry. NEUROLOGICAL: The patient is alert and oriented to person, place, time, and situation. She is able to move all extremities. There were no focal neurological deficits noted. ASSESSMENT AND PLAN: 1. COPD exacerbation. For treatment of this, we have placed the patient with scheduled DuoNeb treatments as well as scheduled Brovana treatments. We will give her Solu- Medrol 60 mg IV q.8 hours. We have also placed some medications for cough as well. We will continue with aggressive pulmonary toilet with incentive spirometry, and frequent encouragement to turn, cough and deep breathe. We will continue her supplemental oxygen at this time. We will continue to follow her respiratory status closely. She will be placed on continuous cardiac telemetry with frequent vital signs. 2. Hypertension. We will continue her regularly prescribed antihypertensive medication of Hyzaar. 3. Hyperlipidemia. We will continue her pravastatin. 4. Hypothyroidism. We will continue her levothyroxine. 5. Chronic pain. We will continue the patient's regularly prescribed medications for this. She does take [place] pretty much on a regularly scheduled basis of 3 times a day. We have continued this. We did provide some Tussionex liquid as well given that she has had a reported a cough, though this will be p.r.n. only as needed. We will monitor her closely. 6. Nicotine dependence. The patient was counseled for several minutes about the importance of smoking cessation given her history of COPD. We have placed orders for p.r.n. nicotine patch if needed. The patient did mention interest in possibly trying Chantix. We will continue to certified alcohol drug counselor the patient on smoking cessation throughout her admission and upon discharge. 7. Deep vein thrombosis prophylaxis will be provided with Lovenox 40 mg subcutaneous q. 24 h. She has been placed on the medical floor of telemetry. She will have vital signs q.4 hours. We will do strict intake and output, incentive spirometry. Her CK was slightly elevated though her troponin was negative. Though given her shortness of breath, we will go ahead and perform a series of cardiac enzymes. Though she is denying any chest pain, she will be on a heart healthy diet. Further orders and recommendations pending hospital course, diagnostic studies, and physician evaluation. Dictated by AMOR Chamorro for Ankit Moscoso MD cc: Ankit Moscoso MD [facility]
--- NOTE | 2019-03-23 07:19 | Diag Imaging Result Doc PS360 ---
EXAM: CHEST-2 VIEWS 03/22/2019 HISTORY: SOB TECHNIQUE: PA and lateral chest COMMENT: The heart size and pulmonary vascularity are within normal limits. Lungs are clear and apparently stable since 05/04/2018. IMPRESSION: No acute disease. Electronically signed by David Santiago 03/23/2019 7:16 AM
[2019-03-23] MEDS: BROVANA NEB INH SCH ×2 (07:30→19:23)
[2019-03-23 07:56] LABS: ALLEN TEST NO; BE 2.6 mmoll (-3.0-3.0); BLOOD TYPE ARTERIAL; HCO3-(ACT) 26.9 mmoll (20.0-26.0); METHB 0.4 % (0.0-1.5); O2(CT) 16.7 mL/dL (15.0-23.0); PCO2(98.6) 45 mmHg (35-45); PO2(98.6) 76 mmHg (60-100); SAMPLE BLOOD; SAO2 99.4 % (95.0-100.0); THB 12.3 g/dL (11.5-17.4)
[2019-03-23 07:57] LABS: MODALITY CANNULA
[2019-03-23] MEDS ORDERED: SOLU-MEDROL IV SCH (08:00)
[2019-03-23] MEDS: DALIRESP PO SCH (08:09)
[2019-03-23] MEDS: TEGRETOL PO SCH ×2 (08:09→18:39)
[2019-03-23 08:32] LABS: CK-MB 6.49 ng/mL (0.0-5.0)
[2019-03-23] MEDS ORDERED: HYZAAR 100/12.5 MG TAB PO SCH (09:00)
[2019-03-23] MEDS: TESSALON PO SCH ×2 (10:51→21:15)
[2019-03-23] MEDS: VITAMIN D PO SCH (10:51)
--- NOTE | 2019-03-23 15:04 | PROGRESS NOTE ---
DATE: 03/23/2019 BRIEF PROGRESS NOTE: The patient is still with some wheezing and decreased air entry but improving from admission. Some nonproductive cough. Continue nebulizers and steroids and monitor. Otherwise stable. ABG without significant hypercapnia, so if she continues to improve symptomatically, she may be able to be discharged home tomorrow.
[2019-03-23] MEDS ORDERED: TUSSIONEX LIQUID PO PRN (15:30)
[2019-03-23 16:36] LABS: CK INDEX 1.2 (0.0-2.5); CK-MB 7.28 ng/mL (0.0-5.0)
[2019-03-23] MEDS: PRAVACHOL PO SCH (18:39)
[2019-03-23] MEDS: REMERON PO SCH (21:15)
[2019-03-23] MEDS: SOLU-MEDROL IV SCH (21:16)
[2019-03-23] MEDS: EFFEXOR XR PO SCH (21:24)
[2019-03-24] MEDS: DUONEB (A & A) INH SCH ×7 (04:21→23:36)
[2019-03-24] MEDS: ZITHROMAX 500 MG/NS 500 MG/250 ML IVPB IV SCH (04:26)
[2019-03-24] MEDS: TESSALON PO SCH ×3 (04:26→18:32)
[2019-03-24] MEDS: LOVENOX SUBQ SCH (06:14)
[2019-03-24] MEDS: PROTONIX PO SCH (06:15)
[2019-03-24] MEDS: SYNTHROID PO SCH (06:15)
[2019-03-24] MEDS: CARAFATE PO SCH ×3 (06:15→16:29)
[2019-03-24] MEDS: BROVANA NEB INH SCH ×2 (07:33→19:26)
[2019-03-24] MEDS: NORCO-10 PO PRN ×2 (07:46→16:29)
[2019-03-24 07:49] LABS: BASO# 0.02 X1000 (0.0-0.2); BASO% 0.2 % (0.0-0.8); EOS# 0.01 X1000 (0.0-0.7); EOS% 0.1 % (0.0-10.0); HEMATOCRIT 36.6 % (37.0-47.0); HEMOGLOBIN 12.4 g/dL (12.0-16.0); IMM GRAN# 0.02 X1000 (0.0-0.04); IMM GRAN% 0.2 % (0.0-0.5); LYMPH# 1.72 X1000 (1.2-3.4); LYMPH% 21.1 % (20.5-51.1); MCH 31.6 PG (27-31); MCHC 33.9 g/dL (33-37); MCV 93.1 FL (81-99); MONO# 0.41 X1000 (0.11-0.59); MPV 9.6 FL (7.4-10.4); NEUT# 5.99 X1000 (1.4-6.5); NEUT% 73.4 % (42.2-75.2); PLT 262 X1000 (130-400); RBC 3.93 XMIL (4.2-5.4); RDW 12.3 % (11.5-14.5); WBC 8.17 X1000 (4.8-10.8)
[2019-03-24] MEDS: VITAMIN D PO SCH (08:05)
[2019-03-24] MEDS: SOLU-MEDROL IV SCH ×2 (08:05→21:46)
[2019-03-24] MEDS: TEGRETOL PO SCH ×2 (08:06→18:32)
[2019-03-24] MEDS: DALIRESP PO SCH (08:06)
[2019-03-24 08:23] LABS: AGAP 10; BUN 9 mg/dL (8-22); CALCIUM 9.1 mg/dL (8.8-10.2); CHLORIDE 99 mmol/L (98-107); CK TOTAL 483 U/L (24-173); COSMO 273; CREATININE 0.6 mg/dL (0.5-0.9); ESTIMATED GFR > 60; GLUCOSE 134 mg/dL (70-104); POTASSIUM 4.3 mmol/L (3.5-5.1); SODIUM 136 mmol/L (136-145); TCO2 27 mmol/L (25-35)
[2019-03-24] MEDS ORDERED: BENADRYL IV PRN (10:28)
--- NOTE | 2019-03-24 18:13 | PROGRESS NOTE ---
DATE: 03/24/2019 INTERVAL HISTORY: The patient with continued slow improvement in wheezing and dyspnea. Occasional brief episodes of increased dyspnea associated with tachycardia and subjective feeling of swelling but no objective evidence of swelling noted. Patient does have history of anxiety; suspect she may be having panic attacks. No other new complaints. No other acute events overnight. REVIEW OF SYSTEMS: Twelve point review of systems negative except as per interval history. LABS: WBC 8.1, hemoglobin 12.4, hematocrit 36.6, platelets 262,000. Basic metabolic panel unremarkable aside from glucose 134. CK 43, down from 600. VITALS: T-max 99.0, pulse 88, respirations 16, blood pressure 135/68. O2 saturation 93% on 3 L by nasal cannula. PHYSICAL EXAMINATION: General: No acute distress. Vitals: As above. HEENT: Normocephalic, atraumatic. Moist mucous membranes. No cervical adenopathy. Cardiovascular: Regular rate and rhythm. No murmurs noted. Pulmonary: Mildly decreased air entry throughout. Faint expiratory wheeze, much improved from previous. Abdomen: Soft, nontender, nondistended. Bowel sounds positive. Extremities: Peripheral pulses intact. No clubbing, cyanosis, or edema. Neurologic: Cranial nerves grossly intact. No focal deficits identified. Psychiatric: Awake, alert, oriented x3. Odd affect. ASSESSMENT AND PLAN: 1. Chronic obstructive pulmonary disease exacerbation. The patient with significantly improved air entry and wheezing but still some subjective dyspnea and borderline O2 saturations. Continue steroids and nebulizers one more day. Hopefully, if she continues to improve, maybe can go home tomorrow. 2. Anxiety. We will start some benadryl prn to see if this helps her. 3. Hypertension. Blood pressure control reasonable off blood pressure medications currently. We will monitor. 4. Hypothyroidism. Continue home Synthroid. 5. Hyperlipidemia. Continue statin. 6. Chronic pain. Continue home [place]. [facility]
[2019-03-24] MEDS: PRAVACHOL PO SCH (18:32)
[2019-03-24] MEDS: EFFEXOR XR PO SCH (18:32)
[2019-03-24] MEDS: REMERON PO SCH (21:46)
[2019-03-25] MEDS: NORCO-10 PO PRN ×2 (00:30→08:31)
[2019-03-25] MEDS: DUONEB (A & A) INH SCH ×3 (03:21→11:35)
[2019-03-25] MEDS: ZITHROMAX 500 MG/NS 500 MG/250 ML IVPB IV SCH (04:12)
[2019-03-25] MEDS: TESSALON PO SCH ×2 (04:12→10:56)
[2019-03-25] MEDS: CARAFATE PO SCH ×2 (06:20→10:56)
[2019-03-25] MEDS: LOVENOX SUBQ SCH (06:20)
[2019-03-25] MEDS: PROTONIX PO SCH (06:20)
[2019-03-25] MEDS: SYNTHROID PO SCH (06:20)
[2019-03-25] MEDS: BROVANA NEB INH SCH (07:45)
[2019-03-25] MEDS: VITAMIN D PO SCH (08:31)
[2019-03-25] MEDS: TEGRETOL PO SCH (08:31)
[2019-03-25] MEDS: DALIRESP PO SCH (08:32)
[2019-03-25] MEDS: SOLU-MEDROL IV SCH (08:32)
[2019-03-25 11:57] VITALS: BP 124/72
--- NOTE | 2019-03-30 17:04 | DISCHARGE SUMMARY ---
ADMISSION DATE: 03/23/2019 DISCHARGE DATE: 03/25/2019 PERTINENT STUDIES: Chest x-ray with no acute process. CBC unremarkable. ABG with normal pH, CO2, and PO2 of 76 with saturations of 96 on 3 L by nasal cannula. Troponin negative x3. Mildly elevated CK on admission at 711, which trended down to 33. Complete metabolic panel otherwise unremarkable. BNP 75. DISCHARGE DIAGNOSES: 1. Chronic obstructive pulmonary disease exacerbation. 2. Hypertension. 3. Hypothyroidism. 4. Hyperlipidemia. 5. Anxiety. 6. Chronic pain. HOSPITAL COURSE: The patient is a 58-year-old female with history of COPD, hypertension, hypothyroidism, tobacco abuse, and remote history of breast cancer. She presented with 1 week of respiratory symptoms starting with sinus pressure and drain, then cough which was largely nonproductive. This slowly progressed until she came to the ER for assessment. In the ER, she was found to have likely COPD exacerbation with wheezing and decreased air entry. She was treated with DuoNebs and steroids and improved slowly. She had occasional episodes of transiently worsened dyspnea and tachycardia which was favored to be anxiety related. Eventually, these all resolved and she was discharged home to follow up with her PCP on a steroid taper. DISCHARGE VITAL SIGNS: Temperature 98.4, pulse 84, respirations 20, blood pressure 124/72, O2 saturation 92% on room now. DISCHARGE MEDICATIONS: Venlafaxine ER 150 mg p.o. at bedtime, carbamazepine 200 mg p.o. b.i.d., Daliresp 500 mcg daily, trazodone 50 mg p.o. at bedtime p.r.n., DuoNebs as needed, Synthroid 75 mcg p.o. daily, pravastatin 20 mg daily, Protonix 40 mg p.o. daily, Remeron 30 mg p.o. at bedtime, Carafate as needed, Symbicort b.i.d., [place] as previously prescribed, losartan/hydrochlorothiazide 100/12.5 daily, nicotine patch 20 mg daily, prednisone taper as prescribed, Tessalon Perles 200 mg p.o. q.8 hours as needed, albuterol inhaler q.6 hours as needed. DISCHARGE DIET: Low-salt. DISCHARGE PLAN: Patient discharging home on steroid taper with nicotine patches. She has been counseled on cessation. Patient to follow up with PCP. Greater than 30 minutes spent arranging discharge and counseling patient.
== END 2019-03-25 14:43 | disposition home or self-care (01) | DRG 192 ==
LOC: ED 22:46 → SUATTDRO 03-23 04:43 → 1N 03-23 04:43
PROVIDERS: ATTEND Internal Medicine